=== PATIENT | female | born 1960 | race Caucasian/White ===

== ENCOUNTER 2022-04-26 03:59 | Emergency (ER) | payer OTHER ==
[2022-04-26] MEDS ORDERED: Ketorolac 30 MG/ML SDV IVPUSH ONE (04:30)
[2022-04-26] MEDS ORDERED: Ondansetron 4 MG/2 ML SDV IVPUSH ONE (04:31)
[2022-04-26] MEDS: Sodium Chloride 0.9% 10 ML Syringe FLUSH PRN ×2 (04:48→04:54)
[2022-04-26] MEDS ORDERED: Sodium Chloride 0.9% 50 ML IV STA (04:58)
[2022-04-26] MEDS ORDERED: Iopamidol 612 MG/ML 100 ML Bottle IV STA (04:58)
[2022-04-26] MEDS ORDERED: HYDROmorphone 0.5 MG/0.5 ML Syringe IVPUSH ONE (05:13)
== END 2022-04-26 06:46 | disposition home or self-care (01) ==
LOC: JP.ED 03:59
DX: K42.9 Umbilical hernia without obstruction or gangrene (principal); D25.9 Leiomyoma of uterus, unspecified; Z88.0 Allergy status to penicillin; Z86.16 Personal history of COVID-19
CPT/HCPCS: 36415; 74178; 80048; 83605; 85025; 86140; 96374; 96375; 99284; J1885; J2405; J3490; Q9967